=== PATIENT | male | born 1985 | race Caucasian/White ===

== ENCOUNTER 2017-04-13 09:59 | Emergency (ER) | payer BC ==
[~2017-04-13] VITALS: Ht 175.3 cm; Wt 74.8 kg
[2017-04-13] MEDS ORDERED: MORPHINE SULFATE INJ 4 MG/ML DISP.SYRIN ONE (10:55)
[2017-04-13] MEDS ORDERED: ONDANSETRON HCL/PF 4 MG/2 ML VIAL ONE ×2 (10:55→17:08)
[2017-04-13] MEDS ORDERED: MORPHINE SULFATE INJ 2 MG/ML DISP.SYRIN IV ONE (11:00)
[2017-04-13] MEDS ORDERED: LIDOCAINE 0.5% HCL 50 ML VIAL IJ ONE (11:00)
[2017-04-13] MEDS ORDERED: ONDANSETRON HCL/PF - ER 4 MG/2 ML VIAL IV ONE ×2 (11:00→17:00)
[2017-04-13] MEDS ORDERED: IV NS 0.9% 1,000 ML BAG IV ONE (11:00)
--- NOTE | 2017-04-13 11:00 | NUR ---
IV ACCESS STARTED. BLOOD DRAWN FOR LABS. PT MEDICATED ORDERED.
--- NOTE | 2017-04-13 11:05 | NUR ---
PT SIGNED CONSENT FOR LUMBAR PUNCTURE. TEACHINGS PROVIDED ABOUT PROCEDURE, VERBLAZES UNDERSTANDING. ALL QUESTIONS ANSWERED.
--- NOTE | 2017-04-13 11:11 | NUR ---
PT TAKEN TO CT.
[2017-04-13 11:12] LABS: CALCIUM, SERUM 9.2 mg/dL (8.5-10.1); CREATININE 0.9 mg/dL (0.6-1.3); POTASSIUM 4.4 mmol/L (3.5-5.1)
[2017-04-13 11:18] LABS: ALBUMIN 5.2 g/dL (3.4-5.0); BILIRUBIN,TOTAL 1.2 mg/dL (0.2-1.0); TOTAL PROTEIN, SERUM 7.5 g/dL (6.4-8.2)
[2017-04-13 11:20] LABS: INR 1.09 (0.87-1.13); PROTHROMBIN TIME 11.4 SECS (9.5-12.7)
[2017-04-13] MEDS ORDERED: LIDOCAINE 0.5% HCL 50 ML VIAL ONE (11:22)
[2017-04-13 11:26] LABS: EOSINOPHILS # (AUTO) 0.1 /CMM (0.0-0.7); EOSINOPHILS % (AUTO) 0.9 % (0.0-6.0); HEMATOCRIT 42 % (39-51); HEMOGLOBIN 14.8 g/dL (13.5-17.5); LYMPHOCYTES # (AUTO) 1.8 /CMM (0.8-4.8); LYMPHOCYTES % (AUTO) 22.8 % (20.0-44.0); MEAN CORPUSCULAR HEMOGLOBIN 32 PG (26.0-33.0); MEAN CORPUSCULAR HGB CONC 36 g/dl (31.0-36.0); MEAN CORPUSCULAR VOLUME 89 fL (80-96); MONOCYTES # (AUTO) 0.4 /CMM (0.1-1.30); MONOCYTES % (AUTO) 4.6 % (2.0-12.0); NEUTROPHILS # (AUTO) 5.7 /CMM (1.8-8.9); NEUTROPHILS % (AUTO) 71.7 % (43.0-81.0); PLATELET COUNT (AUTO) 231 /CMM (150-450); RDW COEFFICIENT OF VARIATION 12.4 (11.5-15.0); RED BLOOD CELL COUNT(AUTO) 4.69 MIL/uL (4.5-6.0)
[2017-04-13] MEDS ORDERED: LORAZEPAM INJ 2 MG/ML VIAL IV ONE (12:00)
[2017-04-13] MEDS ORDERED: LORAZEPAM INJ 2 MG/ML VIAL ONE (12:00)
--- NOTE | 2017-04-13 12:00 | NUR ---
ASSISTED DR. JUSTICE WITH LUMBAR PUNCTURE DONE AT .
[2017-04-13] MEDS ORDERED: LIDOCAINE HCL/PF 1% 30 ML SDV ONE (13:47)
--- NOTE | 2017-04-13 13:49 | NUR ---
PT TAKEN BY RADIOLOGY FOR LP.
--- NOTE | 2017-04-13 14:54 | NUR ---
PT BACK IN BED FROM LP PROCEDURE.
[2017-04-13] MEDS ORDERED: HYDROCODONE/APAP 10/325MG 1 EA TABLET ONE (15:09)
[2017-04-13] MEDS ORDERED: ONDANSETRON 4 MG TAB.RAPDIS ONE (15:09)
--- NOTE | 2017-04-13 15:14 | NUR ---
PT C/O PAIN. MD MADE AWARE, RECEIVED VERBAL ORDERS FOR NORCO 10 AND ZOFRAN 4-ORDERS CARRIED OUT. PT MEDICATED ORDERED. FAMILY MEMBERS AT BS.
[2017-04-13 15:19] LABS: CSF GLUCOSE 64 mg/dL (40-70); CSF PROTEIN 43.9 mg/dL (15-45)
[2017-04-13] MEDS ORDERED: ONDANSETRON 4 MG TAB.RAPDIS SL ONE (16:00)
[2017-04-13] MEDS ORDERED: HYDROCODONE/APAP 10/325MG 1 EA TABLET PO ONE (16:00)
--- NOTE | 2017-04-13 16:59 | NUR ---
PAGED DR ALLEN FOR NEUROLOGY CONSULT
[2017-04-13] MEDS ORDERED: HYDROMORPHONE 1 MG/1 ML DISP.SYRIN IV ONE (17:00)
[2017-04-13] MEDS ORDERED: HYDROMORPHONE 1 MG/1 ML DISP.SYRIN ONE (17:08)
[2017-04-13] MEDS ORDERED: IOHEXOL-350 100 ML VIAL IV ONE (17:10)
[2017-04-13] MEDS ORDERED: CT SWABBABLE VALVE TRANS SET 1 EA INFUS.SET MC ONE (17:10)
--- NOTE | 2017-04-13 17:15 | NUR ---
PT MEDICATED ORDERED.
--- NOTE | 2017-04-13 18:31 | NUR ---
PAGED DR BENTON FOR CONSULT PER DR RAM
--- NOTE | 2017-04-13 18:32 | NUR ---
REPAGED DR ALLEN
--- NOTE | 2017-04-13 19:20 | NUR ---
IV removed. Catheter intact and site benign. Pressure and 4x4 applied to site. No bleeding noted.
--- NOTE | 2017-04-13 19:26 | NUR ---
DPatient discharged to home in stable condition. Written and verbal after care instructions given. Patient verbalizes understanding of instruction. Pt ambulatory with a steady gait.
[2017-04-13 19:28] VITALS: BP 128/71
[2017-04-15 15:10] LABS: VDRL, CSF Non Reactive (Non Rea:<1:1)
[2017-04-16 11:11] LABS: *CRYPTOCOCCUS AG, CSF Negative (Negative)
== END 2017-04-13 19:29 | disposition home or self-care (01) ==
LOC: ER 10:01
DX: R51 Headache (principal); Z88.6 Allergy status to analgesic agent
CPT/HCPCS: 36415; 62270; 70450-TC; 70496-TC; 80053-TC; 85025-TC; 85610-TC; 85730-TC; 86592; 87070-TC; 87899; 89051-TC; A4606; A6402; J2060; J2270; J2405; J7030; Z7610

== ENCOUNTER 2017-09-06 02:15 | Emergency (ER) | payer BC ==
[~2017-09-06] VITALS: Ht 177.8 cm; Wt 86.2 kg
[2017-09-06 02:29] VITALS: BP 151/79
[2017-09-06] MEDS ORDERED: BUPIVACAINE 0.5 % PF 150 MG/30 ML VIAL IJ ONE (06:30)
[2017-09-06] MEDS ORDERED: BUPIVACAINE 0.5 % PF 150 MG/30 ML VIAL ONE (06:30)
[2017-09-06] MEDS ORDERED: DEXAMETHASONE SOD PHOSPHATE 4 MG/ML VIAL ONE (07:36)
[2017-09-06] MEDS ORDERED: HYDROCODONE/APAP 5/325MG 1 EACH TABLET ONE (07:36)
[2017-09-06] MEDS ORDERED: DEXAMETHASONE SOD PHOSPHATE 10 MG/ML VIAL ONE (07:37)
[2017-09-06] MEDS ORDERED: HYDROCODONE/APAP 5/325MG 1 EACH TABLET PO ONE (08:00)
[2017-09-06] MEDS ORDERED: DEXAMETHASONE SOD PHOSPHATE 4 MG/ML VIAL IV ONE (08:00)
== END 2017-09-06 07:53 | disposition home or self-care (01) ==
LOC: ER 02:18
DX: M25.511 Pain in right shoulder (principal)
CPT/HCPCS: 20610; 73030; 99284; A4606; A6402; J1100 ×2; J3490; Z7610

== ENCOUNTER 2019-10-05 14:24 | Emergency (ER) | payer BC ==
[~2019-10-05] VITALS: Ht 177.8 cm; Wt 86.2 kg
[2019-10-05 14:52] VITALS: BP 123/65
[2019-10-05] MEDS ORDERED: TDAP [DIPH/PERTUSSIS/TET] 0.5 ML VIAL IM ONE ×2 (15:30→16:14)
[2019-10-05] MEDS ORDERED: ACETAMINOPHEN 325 MG TABLET PO ONE (15:30)
[2019-10-05] MEDS ORDERED: ACETAMINOPHEN ES 500 MG TABLET ONE (16:12)
== END 2019-10-05 17:10 | disposition home or self-care (01) ==
LOC: ER 14:24
DX: S01.01XA Laceration without foreign body of scalp, initial encounter (principal); Z88.6 Allergy status to analgesic agent; W22.8XXA Striking against or struck by other objects, initial encounter; Y93.01 Activity, walking, marching and hiking; Y92.89 Other specified places as the place of occurrence of the external cause; Y99.8 Other external cause status
CPT/HCPCS: 90715